=== PATIENT | male | born 1970 | race Caucasian/White ===

== ENCOUNTER 2019-04-08 13:14 | Outpatient (CLI) | payer OTHER | END 2019-04-08 13:15 | disposition home or self-care (01) | LOC: CTENTCT 13:14 | PROVIDERS: ATTEND Otolaryngology Plastic Surgery within the Head & Neck | DX: J32.9 Chronic sinusitis, unspecified (principal) | CPT/HCPCS: 70486 ==

== ENCOUNTER 2019-11-10 07:39 | Outpatient (CLI) | payer OTHER ==
--- NOTE | 2019-11-10 09:27 | MRI ---
MRI cervical spine noncontrast: DATE: 11/10/2019 HISTORY: 49-year-old male with cervical radiculopathy. FINDINGS: Cervical spinal cord is normal in size and signal. Alignment is normal. Vertebral body heights are ma intained. Mild disc space narrowing at C6-7. The rest of the disc spaces are maintained. No major bone marrow signal abnormality. Scattered mostly mild facet DJD bilaterally at various levels. Mild t o moderate left facet DJD at C2-3. Developmentally small caliber spinal canal due to congenitally short pedicles. Exacerbated by mild spondylosis as described below. C1-2: No central stenosis C2-3: No high-grade central stenosis or right neural foraminal stenosis. Mild left neural foraminal s tenosis. C3-4: Mild central stenosis. Small bilateral uncinate process osteophytes. Moderate-severe bilateral neural foraminal stenosis. C4-5: Mild central stenosis. Small bilateral uncinate process osteophytes. No significant neural fora tom stenosis. C5-6: Mild central stenosis. Small to moderate-sized bilateral uncinate process osteophytes. Moderate bilateral neural foraminal stenosis, left greater than right. C6-7: Broad-based disc-osteophytic bar complex encroaches upon anterior aspect of spinal canal, causi ng moderate central spinal canal stenosis. This is contiguous with bilateral moderate to large uncinate process osteophytes causing severe bilateral neural foraminal stenosis proximally, right wor se than left. C7-T1: No high-grade central stenosis. Bilateral moderate-sized uncinate process osteophytes. Moderat e bilateral neural foraminal stenosis. IMPRESSION: 1. Predominantly mild cervical spondylosis: mild-moderate degenerative disc disease at C6-7, and most ly mild facet osteoarthrosis at several levels. 2. Multilevel high-grade bilateral neural foraminal stenosis, including severe..
== END 2019-11-10 07:40 | disposition home or self-care (01) ==
LOC: TBSIIMAG 07:39
PROVIDERS: ATTEND Family Medicine
DX: M47.22 Other spondylosis with radiculopathy, cervical region (principal); M50.123 Cervical disc disorder at C6-C7 level with radiculopathy; M48.02 Spinal stenosis, cervical region; M48.03 Spinal stenosis, cervicothoracic region
CPT/HCPCS: 72141

== ENCOUNTER 2019-11-10 08:57 | Outpatient (CLI) | payer OTHER ==
--- NOTE | 2019-11-10 09:46 | RAD ---
XR Cerv Sp Ap Lat STANDARD HISTORY: Cervical radicular pain., Neck Pain radiating down right arm FINDINGS: No fracture, subluxation or bony destruction is seen. There are degenerative changes at C6-7 level.
== END 2019-11-10 08:58 | disposition home or self-care (01) ==
LOC: SCSRAD 08:57
PROVIDERS: ATTEND Family Medicine
DX: M54.12 Radiculopathy, cervical region (principal)
CPT/HCPCS: 72040; 72141